=== PATIENT | male | born 1945 | race Caucasian/White ===

== ENCOUNTER 2019-05-12 17:34 | Emergency (ER) | payer MEDICARE, BC, OTHER ==
--- NOTE | 2019-05-12 18:14 | RAD ---
RADIOGRAPH CHEST 2 VIEW: DATE: 05/12/2019 TIME: 7:00 PM HISTORY: 73-year-old male with cough, and low-grade fever COMPARISON: none FINDINGS: There are mild streaky densities at the lingula and right lower lobe. Cardiomediastinal silhouette is normal. No consolidation or pleural effusion. Lung apices are clear. No pleural effusion or pneumothorax. IMPRESSION: Mild streaky densities at the lingula and right lower lobe. That of the right lower lobe appears front end developer javascript html css betsy. That of the lingula could either represent chronic scar or early acute infiltrate. Recommend follow-up.
== END 2019-05-12 19:03 | disposition home or self-care (01) ==
LOC: ERS 17:34
DX: J18.9 Pneumonia, unspecified organism (principal); E78.5 Hyperlipidemia, unspecified; I10 Essential (primary) hypertension; Z87.891 Personal history of nicotine dependence; Z79.899 Other long term (current) drug therapy
CPT/HCPCS: 71046; 87804